=== PATIENT | female | born 1950 | race African-American/Black ===

== ENCOUNTER 2019-11-14 21:38 | Emergency (ER) | payer MEDICARE ==
[~2019-11-14 21:38] MED LIST: ALENDRONATE SOD70 MG PO; ALPRAZOLAM1 MG PO; AMLODIPINE5 MG PO; CARAFATE1 GM PO; CETIRIZINE PO; DEXILANT60 MG PO; DOXYCYCL HYC100 MG PO; ESTROGEN PO; FLEXERIL PO; FLEXERIL5 MG PO; FLONASE NASAL50 MCG; GABAPENTIN300 MG PO; GENERLAC PO; INDOMETHACIN50 MG PO; KRISTALOSE10 GM PO; LACTULOSE PO; LEVAQUIN500 MG PO; LORTAB 5 OR; MUCINEX1200 MG PO; NABUMETONE500 MG PO; NEXIUM20 M1 OR; NEXIUM40 M1 PO; NORCO1 TA1 PO; NORCO1 TAB PO; NORVASC10 M1 PO; OXYBUTYNIN5 M1 PO; PANTOPRAZOLE SO40 M1 PO; PREMARIN0.3 MG PO; PRILOSEC20 MG PO; PRILOSEC20 MG/CAP PO; PROTONIX40 M3 PO; TRAMADOL HCL50 MG PO; ULTRAM50 M1 PO; VIVLODEX5 MG PO; ZANTAC150 MG OR; ZOVIRAX200 MG PO; ZYRTEC10 M5 PO; [UNRECOGNIZED DRUG - REMARK]
[2019-11-14] MEDS ORDERED: CORTISPORIN OTI10 ML AD (22:54)
[2019-11-14 23:00] VITALS: BP 148/80
== END 2019-11-14 23:02 | disposition home or self-care (01) ==
LOC: ED 21:38
DX: S00.412A Abrasion of left ear, initial encounter (principal); I10 Essential (primary) hypertension; X58.XXXA Exposure to other specified factors, initial encounter

== ENCOUNTER 2021-01-24 | Emergency (ER) | payer MEDICARE ==
[~2021-01-24] MED LIST changes: +CORTISPORIN OTI10 ML AD
[2021-01-24] MEDS ORDERED: CYCLOBENZAPRINE10 MG PO (09:34)
[2021-01-24] MEDS ORDERED: LORTAB 1010 MG PO (09:34)
== END 2021-01-24 10:22 | disposition home or self-care (01) ==
DX: M47.816 Spondylosis without myelopathy or radiculopathy, lumbar region (principal); I10 Essential (primary) hypertension; F41.9 Anxiety disorder, unspecified

== ENCOUNTER 2021-03-24 08:44 | Emergency (ER) | payer MEDICARE ==
[~2021-03-24] VITALS: Ht 157.5 cm; Wt 93.2 kg
[~2021-03-24 08:44] MED LIST changes: +CYCLOBENZAPRINE10 MG PO; +LORTAB 1010 MG PO
[2021-03-24] MEDS ORDERED: NABUMETONE750 MG PO (10:02)
[2021-03-24] MEDS ORDERED: HYDROCO/APAP1 T10 PO (10:04)
[2021-03-24] MEDS ORDERED: TRAMADOL HCL50 MG PO (10:05)
[2021-03-24] MEDS ORDERED: ALPRAZOLAM1 MG PO (10:05)
[2021-03-24] MEDS ORDERED: FLEXERIL5 M1 PO (11:18)
[2021-03-24 11:28] VITALS: BP 139/63
== END 2021-03-24 11:29 | disposition home or self-care (01) ==
LOC: ED 08:44
DX: M16.12 Unilateral primary osteoarthritis, left hip (principal); S76.012A Strain of muscle, fascia and tendon of left hip, initial encounter; M47.816 Spondylosis without myelopathy or radiculopathy, lumbar region; I10 Essential (primary) hypertension; F41.9 Anxiety disorder, unspecified; X58.XXXA Exposure to other specified factors, initial encounter; M16.11 Unilateral primary osteoarthritis, right hip; R10.32 Left lower quadrant pain

== ENCOUNTER 2021-08-24 10:26 | Emergency (ER) | payer MEDICARE ==
[~2021-08-24] VITALS: Ht 157.5 cm; Wt 100.0 kg
[~2021-08-24 10:26] MED LIST changes: +FLEXERIL5 M1 PO; +HYDROCO/APAP1 T10 PO; +NABUMETONE750 MG PO
[2021-08-24 11:40] VITALS: BP 162/79
[2021-08-24] MEDS ORDERED: LORTAB 1010 MG PO (12:02)
[2021-08-24] MEDS ORDERED: NAPROXEN500 MG PO (12:02)
== END 2021-08-24 12:48 | disposition home or self-care (01) ==
LOC: ED 10:26
DX: M16.11 Unilateral primary osteoarthritis, right hip (principal); I10 Essential (primary) hypertension; F41.9 Anxiety disorder, unspecified